=== PATIENT | female | born 1985 | race Caucasian/White ===

== ENCOUNTER 2021-09-27 16:27 | Emergency (ER) | payer OTHER ==
--- NOTE | 2021-09-27 16:44 | EDPHYS ---
Physician Documentation [facility] Name: Renea Kuo Age: 36 yrs Sex: Female : 1985 Arrival Date: 09/27/2021 Time: 16:32 Bed Waiting Private MD: ED Physician Nicki Sanches HPI: 09/27 16:44 This 36 yrs old Female presents to ER via Ambulatory with complaints of Neck kb pain radiates to arm. 16:44 The patient or guardian complains of pain, tenderness. The symptoms are located on the kb left lateral aspect of neck and left posterior aspect of neck. Onset: The symptoms/episode began/occurred 4 day(s) ago. Context: The problem was sustained at home, The neck injury/problem resulted from from unknown cause. Associated signs and symptoms: The patient has no apparent associated signs or symptoms, The patient denies any alcohol use. The patient is not apparently intoxicated. No neurological symptoms were experienced by the patient prior to arrival in the emergency department. The pain radiates to the left arm. Modifying factors: The symptoms are alleviated by nothing. the symptoms are aggravated by movement. Severity of symptoms: At their worst the symptoms were moderate, in the emergency department the symptoms are unchanged. The patient has not experienced similar symptoms in the past. The patient has not recently seen a physician. Pt reports pain to back and left side of neck that radiates down left arm. Pain worse with turning head all the way to the right and moving arm. . 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 - Social history:: Smoking status: Patient denies any tobacco usage or history of. Patient/guardian denies using alcohol. ROS: 16:41 Constitutional: Negative for fever, chills, and weight loss. kb 16:41 Neck: Positive for pain with movement, pain at rest, tenderness, of the left posterior aspect of neck and left lateral aspect of neck. 16:41 All other systems are negative. Exam: 16:42 Constitutional: This is a well developed, well nourished patient who is awake, alert, kb and in no acute distress. Head/Face: Normocephalic, atraumatic. Respiratory: Respirations even and unlabored. No increased work of breathing, no retractions or nasal flaring. Skin: Warm, dry with normal turgor. Normal color. MS/ Extremity: Pulses equal, no cyanosis. Neurovascular intact. Full, normal range of motion. Neuro: Awake and alert, GCS 15, oriented to person, place, time, and situation. Moves all extremities. Normal gait. Psych: Awake, alert, with orientation to person, place and time. Behavior, mood, and affect are within normal limits. 16:42 Neck: External neck: tenderness, that is mild, of the left posterior aspect of neck and left lateral aspect of neck. Vital Signs: 16:40 BP 121 / 91; Pulse 73; Resp 18; Temp 97.6(TE); Pulse Ox 98% on R/A; Weight 98.43 kg; ld1 Height 5 ft. 1 in. (154.94 cm); Pain 6/10; 16:40 Body Mass Index 41.00 (98.43 kg, 154.94 cm) ld1 MDM: 16:36 Patient medically screened. kb 16:41 Data reviewed: vital signs, nurses notes. Data interpreted: Pulse oximetry: on room air kb is 100 %. Interpretation: normal. Counseling: I had a detailed discussion with the patient and/or guardian regarding: the historical points, exam findings, and any diagnostic results supporting the discharge/admit diagnosis, the need for outpatient follow up, a family practitioner, to return to the emergency department if symptoms worsen or persist or if there are any questions or concerns that arise at home. Administered Medications: 16:54 Drug: predniSONE 40 mg Route: PO; ld1 16:54 Follow up: Response: No adverse reaction ld1 Disposition Summary: 09/27/21 16:43 Discharge Ordered Location: Home Condition: Stable kb Diagnosis - Radiculopathy, cervical region kb Followup: kb - With: Emergency Department - When: As needed - Reason: Worsening of condition Followup: kb - With: Private Physician - When: 2 - 3 days - Reason: Recheck today's complaints, Continuance of care, Re-evaluation by your physician Discharge Instructions: - Discharge Summary Sheet kb - Cervical Radiculopathy, [id number] kb Forms: - Medication Reconciliation Form kb - Thank You Letter kb - Antibiotic Education kb - Prescription Opioid Use kb - Work release form ld1 Prescriptions: - Prednisone 20 mg Oral Tablet - take 1 tablet by ORAL route once daily for 5 days; 5 tablet; Refills: 0, kb Product Selection Permitted - Cyclobenzaprine 10 mg Oral Tablet - take 1 tablet by ORAL route every 8 hours As needed; 21 tablet; Refills: 0, kb Product Selection Permitted Addendum: 10/01/2021 06:42 Co-signature as Attending Physician, Nicki Sanches MD PA/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 I agree with assessment and care plan and confirm the diagnosis (es) above. Signatures: Lulú Oliveira, FAMILY INTERVENTION SPECIALIST-C FAMILY INTERVENTION SPECIALIST-Ckb Nicki Sanches MD MD ma2 Sheila Brewer, RN RN ld1
--- NOTE | 2021-09-27 16:44 | ER ---
Nurse's Notes [facility] Name: Renea Kuo Age: 36 yrs Sex: Female : 1985 Arrival Date: 09/27/2021 Time: 16:32 Bed Waiting Private MD: Diagnosis: Radiculopathy, cervical region Presentation: 09/27 16:40 Chief complaint: Patient states: I am having neck pain that radiates down my right arm, ld1 this pain began Friday. Coronavirus screen: At this time, the client does not indicate any symptoms associated with coronavirus-19. Ebola Screen: No symptoms or risks identified at this time. Initial Sepsis Screen: Does the patient meet any 2 criteria? No. Patient's initial sepsis screen is negative. Does the patient have a suspected source of infection? No. Patient's initial sepsis screen is negative. Risk Assessment: Do you want to hurt yourself or someone else?. Onset of symptoms was September 27, 2021. 16:40 Method Of Arrival: Ambulatory ld1 16:40 Acuity: ZHANE 4 ld1 Triage Assessment: 16:42 General: Appears in no apparent distress. comfortable, Behavior is calm, cooperative, ld1 appropriate for age. Pain: Complains of pain in base of the skull Pain radiates to left arm Pain currently is 8 out of 10 on a pain scale. Quality of pain is described as shooting, stabbing, throbbing, Pain began suddenly, Is continuous. EENT: No signs and/or symptoms were reported regarding the EENT system. Neuro: Level of Consciousness is awake, alert, obeys commands, Oriented to person, place, time, situation, Appropriate for age. Cardiovascular: Capillary refill < 3 seconds Patient's skin is warm and dry. Respiratory: Airway is patent Respiratory effort is even, unlabored, Respiratory pattern is regular, symmetrical. GI: Abdomen is round non-distended. : No signs and/or symptoms were reported regarding the genitourinary system. Derm: No signs and/or symptoms reported regarding the dermatologic system. Musculoskeletal: Range of motion: intact in all extremities, Reports pain in scalp and left arm. 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 - Social history:: Smoking status: Patient denies any tobacco usage or history of. Patient/guardian denies using alcohol. Screenin:53 Abuse screen: Denies threats or abuse. Denies injuries from another. Nutritional ld1 screening: No deficits noted. Tuberculosis screening: No symptoms or risk factors identified. Fall Risk None identified. Vital Signs: 16:40 BP 121 / 91; Pulse 73; Resp 18; Temp 97.6(TE); Pulse Ox 98% on R/A; Weight 98.43 kg; ld1 Height 5 ft. 1 in. (154.94 cm); Pain 6/10; 16:40 Body Mass Index 41.00 (98.43 kg, 154.94 cm) ld1 ED Course: 16:32 Patient arrived in ED. mr 16:32 Lul[facility]-C [facility] kb 16:32 Nicki Sanches MD is Attending Physician. kb 16:42 Triage completed. ld1 16:42 Arm band placed on right wrist. ld1 16:53 No provider procedures requiring assistance completed. Patient did not have IV access ld1 during this emergency room visit. 16:54 Patient has correct armband on for positive identification. Pulse ox on. NIBP on. ld1 Administered Medications: 16:54 Drug: predniSONE 40 mg Route: PO; ld1 16:54 Follow up: Response: No adverse reaction ld1 Outcome: 16:43 Discharge ordered by . kb 16:53 Discharged to home ambulatory. ld1 16:53 Condition: stable 16:53 Discharge instructions given to patient, Instructed on discharge instructions, follow up and referral plans. medication usage, Demonstrated understanding of instructions, follow-up care, medications, Prescriptions given X 2. 16:54 Patient left the ED. ld1 Signatures: Lulú Oliveira FNP-C FNP-Ckb Rivera, Mary Sheila Brewer, RN RN ld1
[2021-09-27] MEDS ORDERED: predniSONE 20 MG TAB ONE (16:45)
[2021-09-27 17:02] VITALS: BP 121/91; TEMP 97.6; O2SAT 98
--- OUTSIDE RECORDS SUMMARY | 2021-09-29 21:47 | XMS REPORT | Continuity of Care Document ---
:[address] [facility] t Address [address] [place] [address] Care Team Providers Name Role Phone Pcp, Does Not Have A Primary Care Physician NEFTALY MORENO Attending Clinician Unavailable GENNARO Attending Clinician Unavailable Gennaro ORTIZ Attending Clinician Neftaly Moreno MD Attending Clinician Pob, Lab Main Attending Clinician Unavailable Only, Test Attending Clinician Unavailable Doctor Unassigned, Name Attending Clinician Unavailable NEFTALY MORENO Admitting Clinician Unavailable Neftaly Moreno MD Admitting Clinician Payers Payer Name Policy Type Policy Number Effective Date Expiration Date [employer]tilio [employer] [id number] 2019 OUT OF NETWORK 00:00:00 Problems Condition Condition Condition Status Onset Resolution Last Treating Co mments Source Name Details Category Date Date Treatment Clinician Date 40 weeks 40 weeks Disease Active Unive rs gestation gestation 9- ity of of of 00:00: [place] 00 [facility] Branch History of History of Disease Active U nivers herpes herpes 8-12 ity of genital[place] genitalis [place] [facility] [place] AMA AMA Disease Active Univers (advanced (advanced 2-10 ity of maternal maternal 00:00: [place] age) age) 00 Medical multigravi multigravi Br anch da 35+, da 35+, unspecifie unspecifie d d trimester trimester Previous Previous Disease Active Unive rs 1-13 ity of section section 00:00: [place] 00 [facility] High-risk High-risk Disease Active Uni vers 1-13 ity of in third in third 00:00: [place] trimester trimester 00 [facility] Liveborn Liveborn Disease Active 2018-11 Unive rs infant, of infant, of 1-21 it y of [place] , , 00 Me dical born in born in [place] [facility] by by delivery delivery Obesity Obesity Disease Active Overview: Univ ers (BMI (BMI 6-11 Formattin ity of 30-39.9) 30-39.9) 00:00: g of this Pal as 00 note Medical might be Branch different from the original. 07/07/19 - one hr gtt 120. Monthly ultrasoun ds for growth. Allergies, Adverse Reactions, Alerts Allergy Allergy Status Severity Reaction(s) Onset Inactive Treating Comm ents Source Name Type Date Date Clinician Gloves, Propensi Active Rash Univers Latex ty to 07-18 ity of With adverse 00:00: [place] Aloe reaction 00 [facility] GLOVES, DRUG Active Med Rash Univers LATEX - ity of WITH 00:00: [place] ALOE 00 [facility] NO KNOWN Drug Active Univers ALLERGIE Class ity of [facility] Social History Social Habit Start Date Stop Date Quantity Comments Source ASSERTION 2020-10-25 [facility] 00:00:00 [facility] Exposure to Not sure [facility] SARS-CoV-2 [facility] (event) Branch Alcohol intake 2021-08-16 2021-08-16 Current [facility] 00:00:00 00:00:00 non-drinker of [facility] alcohol [place] (finding) Tobacco use and 2019-03-30 2019-03-30 Never used Universit y of exposure 00:00:00 00:00:00 [facility] Sex [birth year] Universit y of 00:00:00 00:00:00 [facility] Smoking Status Start Date Stop Date Source Never smoker [facility] Medications Ordered Filled Start Stop Current Ordering Indication Dosage Frequency Signature Comments Components Source Medication Medication Date Date Medication? Clinician (SIG) Name Name nystatin Yes [id number] Apply to Univers 100,000 9-30 area(s) 2 ity of unit/gram 00:00: (two) [place] powder 00 times Medical daily. Branch PNV 2020-0 2020- No Take by Univers no.153/FA/o -01 23-03 mouth. ity o f m3/dha/epa/ 12:00: 00:00 [place] fish 21 :00 Medical ( Branch GUMMIES ORAL) ibuprofen Yes 600mg 600 mg, Univ ers (IBU) 9-03 Oral, Q6H ity of tablet 600 05:00: ABX, First [place] mg 00 dose on Medical Fri07/20/21 Branch at 0000, Until Discontinu ed, Routine ibuprofen Yes 600mg 600 mg, Univ ers (IBU) 903 Oral, Q6H ity of tablet 600 05:00: ABX, First [place] mg 00 dose on Medical Fri07/20/21 Branch at 0000, Until Discontinu ed, Routine acetaminoph Yes [id number] 650mg Take 2 Univers en 325 mg 9-03 tablets by ity of tablet 00:00: mouth [place] 00 every 6 Medical (six) Branch hours as needed for Pain (scale 1-3) or Pain (scale 4-6). 2020- Yes [id number] 1{tbl} Take 1 Univers vitamin 9-03 tablet by ity of w/FA tablet 00:00: mouth [place] 00 daily. Medical Branch docusate 0 Yes [id number] 240mg Take 1 U nivers calcium 240 9-03 capsule by it y of mg capsule 00:00: mouth once [place] 00 daily as Medical needed for Branch Constipati on. ferrous Yes [id number] 325mg Take 1 Un raymond sulfate 325 9-03 tablet by ity of mg (65 mg 00:00: mouth 2 [place] iron) 00 (two) Medical tablet times Branch daily. ibuprofen Yes [id number] 600mg Take 1 Univers 600 mg 9-03 tablet by ity of tablet 00:00: mouth [place] 00 every 6 Medical (six) Branch hours as needed (Pain). Take with food or milk. acetaminoph Yes [id number] 650mg Take 2 Univers en 325 mg 9-03 tablets by ity of tablet 00:00: mouth [place] 00 every 6 Medical (six) Branch hours as needed for Pain (scale 1-3) or Pain (scale 4-6). Yes [id number] 1{tbl} Take 1 Univers vitamin 9-03 tablet by ity of w/FA tablet 00:00: mouth [place] 00 daily. Medical Branch docusate Yes [id number] 240mg Take 1 U nivers calcium 240 9-03 capsule by it y of mg capsule 00:00: mouth once [place] 00 daily as Medical needed for Branch Constipati on. ferrous Yes [id number] 325mg Take 1 Un raymond sulfate 325 9-03 tablet by ity of mg (65 mg 00:00: mouth 2 [place] iron) 00 (two) Medical tablet times Branch daily. ibuprofen Yes [id number] 600mg Take 1 Univers 600 mg 9-03 tablet by ity of tablet 00:00: mouth [place] 00 every 6 Medical (six) Branch hours as needed (Pain). Take with food or milk. acetaminoph Yes [id number] 650mg Take 2 Univers en 325 mg 9-03 tablets by ity of tablet 00:00: mouth [place] 00 every 6 Medical (six) Branch hours as needed for Pain (scale 1-3) or Pain (scale 4-6). Yes [id number] 1{tbl} Take 1 Univers vitamin 9-03 tablet by ity of w/FA tablet 00:00: mouth [place] 00 daily. Medical Branch docusate Yes [id number] 240mg Take 1 U nivers calcium 240 9-03 capsule by it y of mg capsule 00:00: mouth once [place] 00 daily as Medical needed for Branch Constipati on. ferrous Yes [id number] 325mg Take 1 Un raymond sulfate 325 9-03 tablet by ity of mg (65 mg 00:00: mouth 2 [place] iron) 00 (two) Medical tablet times Branch daily. ibuprofen Yes [id number] 600mg Take 1 Univers 600 mg 9-03 tablet by ity of tablet 00:00: mouth [place] 00 every 6 Medical (six) Branch hours as needed (Pain). Take with food or milk. HYDROcodone 2020- Yes [id number] 1{tbl} Take 1 U nivers -acetaminop 07-20 tablet by it y of hen 5-325 00:00: 04:59 mouth [place] mg tablet 00 :00 every 6 Medical (six) Branch hours as needed for Pain (scale 7-10) for up to 7 days. Indication s: acute pain gabapentin 2020-0 2021- Yes [id number] 300mg Take 1 Univers 300 mg 07-20 capsule by ity of capsule 00:00: 04:59 mouth 3 [place] 00 :00 (three) Medical times Branch daily for 5 days. acetaminoph Yes 650mg 650 mg, Un raymond en 07-19 Oral, Q6H ity of (TYLENOL) 12:30: ABX, First [place] tablet 650 00 dose Medical mg (after Branch last modificati on) on Fri07/19/21 at 0730, Until Discontinu ed, Routine acetaminoph Yes 650mg 650 mg, Un raymond en 07-19 Oral, Q6H ity of (TYLENOL) 12:30: ABX, First [place] tablet 650 00 dose Medical mg (after Branch last modificati on) on Fri07/19/21 at 0730, Until Discontinu ed, Routine HYDROcodone 2020-0 Yes 1{tbl} 1 tablet, Univers -acetaminop 07-19 Oral, ity of hen (NORCO 12:00: Q6HPRN, [place] 5) 5-325 mg 00 Starting Medi joseph tablet Fri07/19/21 Branc h tablet at 0700, Until Discontinu ed, Routine, Pain (scale 7-10) HYDROcodone 2020-0 Yes 1{tbl} 1 tablet, Univers -acetaminop 07-19 Oral, ity of hen (NORCO 12:00: Q6HPRN, [place] 5) 5-325 mg 00 Starting Medi joseph tablet Fri07/19/21 Branc h tablet at 0700, Until Discontinu ed, Routine, Pain (scale 7-10) ketorolac 2020-0 202- Yes 30mg 30 mg, Unive rs (TORADOL) 07-19 Slow IV ity of injection 05:00: 04:59 Push, Q6H [place] 30 mg 00 :00 ABX, 4 Medical doses, Branch First dose on Fri07/19/21 at 0000, Last dose on Fri07/19/21 at 1800, Routine
member services representative approving Restricted medication : RUY MORENO ketorolac No 30mg 30 mg, Unive rs (TORADOL) 07-19 Slow IV ity of injection 05:00: 04:59 Push, Q6H [place] 30 mg 00 :00 ABX, 4 Medical doses, Branch First dose on Fri07/19/21 at 0000, Last dose on Fri07/19/21 at 1800, Routine
member services representative approving Restricted medication : RUY MORENO acetaminoph No 1000mg 1,000 mg, Univers en ADULT 07-18 IV ity of (OFIRMEV) 21:00: 21:37 Infusion, [place] injection 00 :00 Administer Medi joseph 1,000 mg over 15 Branch Minutes, Q6H, 1 dose, First dose on Fri07/18/21 at 1600, Routine, PACU
In dication: Perioperat mike Patient gabapentin 2020-0 Yes 300mg 300 mg, Uni vers (NEURONTIN) 07-18 Oral, TID, it y of capsule 300 19:00: First dose [place] mg 00 on Fri07/18/21 at Branch 1400, Until Discontinu ed, Routine gabapentin 2020-0 Yes 300mg 300 mg, Uni vers (NEURONTIN) 07-18 Oral, TID, it y of capsule 300 19:00: First dose [place] mg 00 on Fri07/18/21 at Branch 1400, Until Discontinu ed, Routine simethicone 0 Yes 160mg 160 mg, Un raymond (GAS RELIEF 07-18 Oral, ity of (SIMETHICON 18:00: PC+HS, [place] E)) 00 First dose Medical chewable on Fri Branch tablet 160 07/18/21 at mg 1300, Until Discontinu ed, Routine simethicone 0 Yes 160mg 160 mg, Un raymond (GAS RELIEF 07-18 Oral, ity of (SIMETHICON 18:00: PC+HS, [place] E)) 00 First dose Medical chewable on Fri Branch tablet 160 07/18/21 at mg 1300, Until Discontinu ed, Routine lactated 2020- No 1000mL at 125 [facility] [place] [facility] ers ringers IV 07-18 mL/hr, ity of infusion 16:00: 21:22 1,000 mL, Pal as 1,000 mL 00 :00 IV Medical Infusion, Branch ONCE, 1 dose, Fri07/18/21 at 1100, Routine nalbuphine Yes 5mg 5 mg, Univer s (NUBAIN) 07-18 Intravenou ity o f injection 5 15:53: s, PRN, 1 [place] mg 47 dose, Medical Starting Branch Fri07/18/21 at 1053, Until Discontinu ed, Routine, itching, PACU nalbuphine Yes 5mg 5 mg, Univer s (NUBAIN) 07-18 Intravenou ity o f injection 5 15:53: s, PRN, 1 [place] mg 47 dose, Medical Starting Branch Fri07/18/21 at 1053, Until Discontinu ed, Routine, itching, PACU naloxone 2020- Yes .4mg 0.4 mg, Unive rs (NARCAN) 07-18 Slow IV ity of injection 15:53: 15:52 Push, PRN [place] 0.4 mg 47 :47 - SEE Medical INSTRUCTIO [place] NS, Starting Fri07/18/21 at 1053, Until Fri07/20/21 at 1052, Routine, Analgesia Recovery, PACU rho(D) Yes 300ug 300 mcg, Univer s immune 07-18 Intramuscu ity of globulin 15:52: lar, ONCE, Pal as (RHOGAM) 51 For 1 Medical syringe 300 dose, Branch mcg Conditiona l, Routine rho(D) Yes 300ug 300 mcg, Univer s immune 07-18 Intramuscu ity of globulin 15:52: lar, ONCE, Pal as (RHOGAM) 51 For 1 Medical syringe 300 dose, Branch mcg Conditiona l, Routine diphenhydrA Yes 25mg 25 mg, Univ ers MINE 07-18 Oral, ity of (BENADRYL) 15:52: Q6HPRN, [place] tablet 25 43 Starting Medica l mg Fri07/18/21 Branch at 1052, Until Discontinu ed, Routine, Sleep, Itching ondansetron 2021-0 Yes 4mg 4 mg, Slow Univers (ZOFRAN 07-18 IV Push, ity of (PF)) 15:52: Q8HPRN, [place] injection 4 43 Starting Medi joseph mg Fri07/18/21 Branch at 1052, Until Discontinu ed, Routine, Nausea and Vomiting (N/V) bisacodyL 2021-0 Yes 10mg 10 mg, Univer s (DULCOLAX) 07-18 Rectal, ity of suppository 15:52: QDAILYPRN, [place] 10 mg 43 Starting Medical Fri07/18/21 Branch at 1052, Until Discontinu ed, Routine, Constipati on magnesium 2021-0 Yes 30mL 30 mL, Univer s hydroxide 07-18 Oral, ity of (MILK OF 15:52: QDAILYPRN, Pal as MAGNESIA) 43 Starting Medica l 400 mg/5 mL Fri07/18/21 Br anch suspension at 1052, 30 mL Until Discontinu ed, Routine, Constipati on diphenhydrA 1-0 Yes 25mg 25 mg, Univ ers MINE 07-18 Oral, ity of (BENADRYL) 15:52: Q6HPRN, [place] tablet 25 43 Starting Medica l mg Fri07/18/21 Branch at 1052, Until Discontinu ed, Routine, Sleep, Itching ondansetron 2021-0 Yes 4mg 4 mg, Slow Univers (ZOFRAN 07-18 IV Push, ity of (PF)) 15:52: Q8HPRN, [place] injection 4 43 Starting Medi joseph mg Fri07/18/21 Branch at 1052, Until Discontinu ed, Routine, Nausea and Vomiting (N/V) bisacodyL 2021-0 Yes 10mg 10 mg, Univer s (DULCOLAX) 07-18 Rectal, ity of suppository 15:52: QDAILYPRN, [place] 10 mg 43 Starting Medical Fri07/18/21 Branch at 1052, Until Discontinu ed, Routine, Constipati on magnesium 2021-0 Yes 30mL 30 mL, Univer s hydroxide 07-18 Oral, ity of (MILK OF 15:52: QDAILYPRN, [place] as MAGNESIA) 43 Starting Medica l 400 mg/5 mL Fri07/18/21 Br anch suspension at 1052, 30 mL Until Discontinu ed, Routine, Constipati on mupirocin Yes Intra-op Univ ers (BACTROBAN 07-18 ity of OINT) 2 % 15:38: [place] skin 00 Medical ointment Branch mupirocin Yes Intra-op Univ ers (BACTROBAN 07-18 ity of OINT) 2 % 15:38: [place] skin 00 Medical ointment Branch sodium Yes PRN, Univers chloride 07-18 Starting ity of 0.9 % 15:00: Fri07/18/21 [place] irrigation 00 at 1000, Medic al solution Until Branch Discontinu ed, Intra-op sodium Yes PRN, Univers chloride 07-18 Starting ity of 0.9 % 15:00: Fri07/18/21 [place] irrigation 00 at 1000, Medic al solution Until Branch Discontinu ed, Intra-op PNV Yes Take by Univers no.153/FA/o 07-18 mouth. ity of m3/dha/epa/ 14:24: [place] fish 56 Medical ( Branch GUMMIES ORAL) sodium 2020- No 30mL 30 mL, Univers citrate-cit 07-18 Oral, ity of sarah acid 12:11: 13:50 PRE-PROCED [place] (BICITRA) 23 :00 URE ONCE, Medic al 500-334 1 dose, Branch mg/5 mL Starting solution 30 Fri07/18/21 mL at 0711, Until Fri07/18/21 at 0850, Routine, Surgery/Pr ocedure lactated 2020- No 500mL at 999 Unive rs ringers IV 07-18 mL/hr, 500 it y of infusion 12:11: 15:52 mL, IV [place] 500 mL 23 :52 Infusion, Medical PRN - SEE Branch INSTRUCTIO NS, Starting Fri07/18/21 at 0711, Until Fri07/18/21 at 1052, Routine acyclovir 2020- No [id number] 400mg Take 1 Univers 400 mg 06-28 tablet by ity of tablet 00:00: 04:59 mouth 3 [place] 00 :00 (three) Medical times Branch daily for 21 days. acyclovir 2020-2020- No [id number] 400mg Take 1 Univers 400 mg 8-10 25-03 tablet by ity of tablet 00:00: 04:59 mouth 3 [place] 00 :00 (three) Medical times Branch daily for 21 days. acyclovir 2020-2020- No [id number] 400mg Take 1 Univers 400 mg 8-10 25-03 tablet by ity of tablet 00:00: 04:59 mouth 3 [place] 00 :00 (three) Medical times Branch daily for 21 days. acyclovir 2020-2020- No [id number] 400mg Take 1 Univers 400 mg 8-10 25- tablet by ity of tablet 00:00: 04:59 mouth 3 [place] 00 :00 (three) Medical times Branch daily for 21 days. acyclovir 2020-2020- No [id number] 400mg Take 1 Univers 400 mg 8-10 25- tablet by ity of tablet 00:00: 04:59 mouth 3 [place] 00 :00 (three) Medical times Branch daily for 21 days. acyclovir 2020- No [id number] 400mg Take 1 Univers 400 mg 8-10 25- tablet by ity of tablet 00:00: 04:59 mouth 3 [place] 00 :00 (three) Medical times Branch daily for 21 days. acyclovir 2020- No [id number] 400mg Take 1 Univers 400 mg 8-10 25- tablet by ity of tablet 00:00: 00:00 mouth 3 [place] 00 :00 (three) Medical times Branch daily for 21 days. ferrous Yes [id number] 325mg Take 1 Un raymond sulfate 6-28 tablet by ity of (IRON, 00:00: mouth 2 [place] FERROUS 00 (two) Medical SULFATE,) times Branch 325 mg (65 daily. mg iron) tablet ferrous Yes [id number] 325mg Take 1 Un raymond sulfate 6-28 tablet by ity of (IRON, 00:00: mouth 2 [place] FERROUS 00 (two) Medical SULFATE,) times Branch 325 mg (65 daily. mg iron) tablet ferrous Yes [id number] 325mg Take 1 Un raymond sulfate 6-28 tablet by ity of (IRON, 00:00: mouth 2 [place] FERROUS 00 (two) Medical SULFATE,) times Branch 325 mg (65 daily. mg iron) tablet ferrous Yes [id number] 325mg Take 1 Un raymond sulfate 6-28 tablet by ity of (IRON, 00:00: mouth 2 [place] FERROUS 00 (two) Medical SULFATE,) times Branch 325 mg (65 daily. mg iron) tablet ferrous Yes [id number] 325mg Take 1 Un raymond sulfate 6-28 tablet by ity of (IRON, 00:00: mouth 2 [place] FERROUS 00 (two) Medical SULFATE,) times Branch 325 mg (65 daily. mg iron) tablet ferrous Yes [id number] 325mg Take 1 Un raymond sulfate 6-28 tablet by ity of (IRON, 00:00: mouth 2 [place] FERROUS 00 (two) Medical SULFATE,) times Branch 325 mg (65 daily. mg iron) tablet ferrous 2020- No [id number] 325mg Take 1 U nivers sulfate 6-28 07-20 tablet by ity of (IRON, 00:00: 00:00 mouth 2 [place] FERROUS 00 :00 (two) Medical SULFATE,) times Branch 325 mg (65 daily. mg iron) tablet PNV Yes Take by Univers no.153/FA/o 4-12 mouth. ity of m3/dha/epa/ 18:17: [place] fish 19 Medical ( Branch GUMMIES ORAL) PNV 0 Yes Take by Univers no.153/FA/o 4-12 mouth. ity of m3/dha/epa/ 18:17: [place] fish 19 Medical ( Branch GUMMIES ORAL) PNV 0 Yes Take by Univers no.153/FA/o 4-12 mouth. ity of m3/dha/epa/ 18:17: [place] fish 19 Medical ( Branch GUMMIES ORAL) PNV 0 Yes Take by Univers no.153/FA/o 4-12 mouth. ity of m3/dha/epa/ 18:17: [place] fish 19 Medical ( Branch GUMMIES ORAL) PNV 2020- Yes Take by Univers no.153/FA/o 4-12 mouth. ity of m3/dha/epa/ 18:17: [place] fish 19 Medical ( Branch GUMMTES ORAL) Immunizations Ordered Filled Immunization Date Status Comments [facility] e Immunization Name Name TDAP 2021-04-26 Completed University of 00:00:00 [facility] Branch TDAP 2021-04-26 Completed University of 00:00:00 [facility] Branch TDAP 2021-04-26 Completed University of 00:00:00 [facility] TDAP 2021-04-26 Completed University of 00:00:00 [facility] Branch TDAP 2021-04-26 Completed University of 00:00:00 [facility] TDAP 2021-04-26 Completed University of 00:00:00 [facility] TDAP 2021-04-26 Completed University of 00:00:00 [facility] TDAP 2021-04-26 Completed University of 00:00:00 [facility] TDAP 2021-04-26 Completed University of 00:00:00 [facility] SARS-COV-2 COVID-19 2021-03-09 Completed Unive rsity of PFIZER VACCINE 00:00:00 [facility] SARS-COV-2 COVID-19 2021-03-09 Completed Unive rsity of PFIZER VACCINE 00:00:00 [facility] SARS-COV-2 COVID-19 2021-03-09 Completed Unive rsity of PFIZER VACCINE 00:00:00 [facility] SARS-COV-2 COVID-19 2021-03-09 Completed Unive rsity of PFIZER VACCINE 00:00:00 [facility] Influenza Virus 2020-11-29 Completed Universit y of Vaccine Quad .5 mL 00:00:00 [facility] IM 6+ MO Branch Influenza Virus 2020-11-29 Completed Universit y of Vaccine [place] .5 mL 00:00:00 [facility] IM 6+ MO Branch Influenza Virus 2020-11-29 Completed Universit y of Vaccine Quad .5 mL 00:00:00 [place] Medical IM 6+ MO Branch Influenza Virus 2020-11-29 Completed Universit y of Vaccine Quad .5 mL 00:00:00 [place] Medical IM 6+ MO Branch Influenza Virus 2020-11-29 Completed Universit y of Vaccine [place] .5 mL 00:00:00 [facility] IM 6+ MO Branch Influenza Virus 2020-11-29 Completed Universit y of Vaccine [place] .5 mL 00:00:00 [place] Medical IM 6+ MO Branch Influenza Virus 2020-11-29 Completed Universit y of Vaccine [place] .5 mL 00:00:00 [place] Medical IM 6+ MO Branch Influenza Virus 2020-11-29 Completed Universit y of Vaccine [place] .5 mL 00:00:00 [place] Medical IM 6+ MO Branch Influenza Virus 2020-11-29 Completed Universit y of Vaccine [place] .5 mL 00:00:00 [place] Medical IM 6+ MO Branch Influenza Virus 2019-08-25 Completed Universit y of Vaccine [place] .5 mL 00:00:00 [place] Medical IM 6+ MO Branch Influenza Virus 2019-08-25 Completed Universit y of Vaccine [place] .5 mL 00:00:00 [place] Medical IM 6+ MO Branch Influenza Virus 2019-08-25 Completed Universit y of Vaccine Quad .5 mL 00:00:00 [place] Medical IM 6+ MO Branch Influenza Virus 2019-08-25 Completed Universit y of Vaccine Quad .5 mL 00:00:00 [place] Medical IM 6+ MO Branch Influenza Virus 2019-08-25 Completed Universit y of Vaccine Quad .5 mL 00:00:00 [place] Medical IM 6+ MO Branch Influenza Virus 2019-08-25 Completed Universit y of Vaccine [place] .5 mL 00:00:00 [place] Medical IM 6+ MO Branch Influenza Virus 2019-08-25 Completed Universit y of Vaccine [place] .5 mL 00:00:00 [place] Medical IM 6+ MO Branch Influenza Virus 2019-08-25 Completed Universit y of Vaccine Quad .5 mL 00:00:00 [place] Medical IM 6+ MO Branch Influenza Virus 2019-08-25 Completed Universit y of Vaccine [place] .5 mL 00:00:00 [facility] 6+ MO Branch TDAP (ADACEL) 2019-07-12 Completed University of VACCINE 00:00:00 [place] [facility] Branch TDAP (ADACEL) 2019-07-12 Completed University of VACCINE 00:00:00 [place] [facility] Branch TDAP (ADACEL) 2019-07-12 Completed University of VACCINE 00:00:00 [place] [facility] TDAP (ADACEL) 2019-07-12 Completed University of VACCINE 00:00:00 [place] [facility] TDAP (ADACEL) 2019-07-12 Completed University of VACCINE 00:00:00 [facility] TDAP (ADACEL) 2019-07-12 Completed University of VACCINE 00:00:00 [facility] TDAP (ADACEL) 2019-07-12 Completed University of VACCINE 00:00:00 [place] [facility] TDAP (ADACEL) 2019-07-12 Completed University of VACCINE 00:00:00 [facility] Branch TDAP (ADACEL) 2019-07-12 Completed University of VACCINE 00:00:00 [facility] Vital Signs Vital Name Observation Time Observation Value Comments Source Systolic blood 2021-08-16 19:41:00 113 mm[Hg] Univer sity of pressure [place] [facility] Diastolic blood 2021-08-16 19:41:00 78 mm[Hg] Unive rsity of pressure [place] [facility] Heart rate 2021-08-16 19:41:00 74 /min Universi ty of [place] [facility] Body temperature 2021-08-16 19:41:00 36.5 Skylar Univ ersity of [place] [facility] Respiratory rate 2021-08-16 19:41:00 18 /min Univ ersity of [place] [facility] Body height 2021-08-16 19:41:00 154.9 cm Universi ty of [place] [facility] Body weight 2021-08-16 19:41:00 93.895 kg Universi ty of [place] [facility] BMI 2021-08-16 19:41:00 39.11 kg/m2 Universi ty of [place] [facility] Systolic blood 2021-07-30 18:30:00 116 mm[Hg] Univer sity of pressure [place] [facility] Diastolic blood 2021-07-30 18:30:00 76 mm[Hg] Unive rsity of pressure [place] [facility] Heart rate 2021-07-30 18:30:00 70 /min Universi ty of [place] [facility] Body temperature 2021-07-30 18:30:00 36.5 Skylar Univ ersity of [place] [facility] Respiratory rate 2021-07-30 18:30:00 16 /min Univ ersity of [place] [facility] Body height 2021-07-30 18:30:00 154.9 cm Universi ty of [place] [facility] Body weight 2021-07-30 18:30:00 95.528 kg Universi ty of [place] [facility] BMI 2021-07-30 18:30:00 39.79 kg/m2 Universi ty of [place] [facility] Systolic blood 2021-07-20 17:00:00 130 mm[Hg] Univer sity of pressure [place] [facility] Diastolic blood 2021-07-20 17:00:00 79 mm[Hg] Unive rsity of pressure [place] [facility] Heart rate 2021-07-20 17:00:00 87 /min Universi ty of [place] [facility] Body temperature 2021-07-20 17:00:00 36.72 Skylar Univ ersity of [place] [facility] Respiratory rate 2021-07-20 17:00:00 18 /min Univ ersity of [place] [facility] Oxygen saturation in 2021-07-20 08:15:00 98 /min University of Arterial blood by [facility] Pulse oximetry Branch Body height 2021-07-18 12:23:00 154.9 cm Universi ty of [place] [facility] Body weight 2021-07-18 12:23:00 98.431 kg Universi ty of [place] [facility] BMI 2021-07-18 12:23:00 41.00 kg/m2 Universi ty of [place] [facility] Systolic blood 2021-07-18 12:30:00 119 mm[Hg] Univer sity of pressure [place] [facility] Diastolic blood 2021-07-18 12:30:00 80 mm[Hg] Unive rsity of pressure [place] [facility] Heart rate 2021-07-18 12:30:00 91 /min Universi ty of [place] [facility] Oxygen saturation in 2021-07-18 12:30:00 98 /min University of Arterial blood by [facility] Pulse oximetry Branch Body temperature 2021-07-18 12:23:00 36.67 Skylar Univ ersity of [place] [facility] Respiratory rate 2021-07-18 12:23:00 14 /min Univ ersity of [place] [facility] Body height 2021-07-18 12:23:00 154.9 cm [facility] Body weight 2021-07-18 12:23:00 98.431 kg [facility] BMI 2021-07-18 12:23:00 41.00 kg/m2 [facility] Systolic blood 2021-07-12 19:05:00 113 mm[Hg] Un[facility] of pressure [facility] Diastolic blood 2021-07-12 19:05:00 75 mm[Hg] Unive rsity of pressure [facility] Heart rate 2021-07-12 19:05:00 84 /min [facility] Body temperature 2021-07-12 19:05:00 36.5 [facility] Respiratory rate 2021-07-12 19:05:00 18 /min [facility] Body height 2021-07-12 19:05:00 156.2 cm [facility] Body weight 2021-07-12 19:05:00 97.977 kg [facility] BMI 2021-07-12 19:05:00 40.15 kg/m2 [facility] Procedures Procedure Date / Time Performed Performing Clinician Marcus e CBC WITH DIFF 2021-07-19 08:17:00 Tiffanie [facility] CBC WITH DIFF 2021-07-19 08:17:00 Tiffanie [facility] VENOUS CORD GAS 2021-07-18 15:02:00 Moreno [facility] VENOUS CORD GAS 2021-07-18 15:02:00 Tiffanie [facility] SECTION 2021-07-18 13:55:00 More[place] [facility] SECTION 2021-07-18 13:55:00 Moreno [facility] RHO (D) IMMUNE 2021-07-17 18:58:00 [facility] RHO (D) IMMUNE 2021-07-17 18:58:00 [facility] ASSIGNMENT OF BENEFITS 2021-07-12 20:07:31 Doctor Unassigned, No [facility] POCT URINALYSIS W/O 2021-07-12 00:00:00 Luz Elena Mata [facility] Encounters Start End Encounter Admission Attending Care Care Encounter Source Date/Time Date/Time Type Type Clinicians Facility Department ID 2021-09-17 Outpatient P RUY MORENO [facility] [place] [id number] Univers 18:23:35 [facility] 2022-02-14 2022-02-14 Outpatient SHAHZAD MATA AKTAMI [id number] Univers 13:30:00 13:30:00 LUZ ELENA [id number] [facility] 2021-08-162021-08-16 Outpatient R GENNARO [facility] [id number] Univers 14:30:00 14:30:00 LUZ ELENA [id number] ity [facility] 2021-08-16 2021-08-16 Outpatient R GENNARO [facility] [id number] Univers 14:30:00 14:30:00 [facility] 2021-08-16 Routine Gennaro [facility] [id number] Univers 14:11:50 14:26:50 Luz Elena [place] [id number] [place] [id number] [address] 2021-07-30 2021-07-30 Routine Moreno [facility] [id number] Univers 12:54:13 14:09:10 Cam [place] [id number] [place] [id number] [address] 2021-07-30 2021-07-30 Outpatient R TIFFANIE [facility] [id number] Univers 13:00:00 13:00:00 [id number] ity of [facility] 2021-07-30 2021-07-30 Outpatient R JOELLE MORENOEN [facility] [id number] Univers 13:00:00 13:00:00 ity of [facility] 2021-07-18 2021-07-20 [facility] [id number] Univers 06:50:00 15:38:00 Encounter Cam [place] [id number] [place] [id number] [facility] [address] 2021-07-18 2021-07-18 Surgery Tiffanie [facility] [id number] Univers 09:00:00 10:16:00 Cam [place] [id number] [place] [id number] [facility] 013 Branch 2021-07-17 2021-07-17 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 [id number] Univers 13:33:56 13:48:56 Only Tiffanie Ruy [place] 350.1.13.10 [place] [id number] [facility] [address] 2021-07-17 2021-07-17 Outpatient R [facility] [id number] Univers 13:30:00 13:30:00 [id number] ity [facility] 2021-07-17 2021-07-17 Outpatient R [facility] [id number] Univers 13:30:00 13:30:00 ity [facility] 2021-07-12 2021-07-12 [facility] [id number] Univers 13:34:20 13:49:20 Luz Elena [place] 350.1.13.10 [place] [phone] Wy dical nal 134 [facility] 2021-07-12 2021-07-12 Outpatient R GENNARO [facility] [id number] Univers 13:30:00 13:30:00 LUZ ELENA [id number] ity [facility] 2021-07-12 2021-07-12 Outpatient R GENNARO [facility] [id number] Univers 13:30:00 13:30:00 LUZ ELENA itashok [facility] 2021-07-12 2021-07-12 Telephone Ruy Moreno [facility] 1.2.840.114 [id number] Univers 00:00:00 00:00:00 Cam [place] 350.1.13.10 i [place] [id number] Wy dical [address] 2021-07-12 2021-07-12 Orders Doctor JUJU 1.2.840.114 [id number] Univers 00:00:00 00:00:00 Only Unassigned, SHAZIA 350.1.13.10 ity of [facility] 4.2.7.2.686 [place] [id number] [address] 2021-07-05 2021-07-05 Outpatient R RUY MORENO [facility] [id number] Univers 13:45:00 13:45:00 [id number] ity [facility] 2021-07-05 2021-07-05 Outpatient Charles MORENO RUY [facility] [id number] Univers 13:45:00 13:45:00 ity [facility] 2021-06-29 2021-06-29 Outpatient R [facility] [id number] Univers 13:30:00 13:30:00 [id number] ity [facility] 2021-06-29 2021-06-29 Outpatient R [facility] [id number] Univers 13:30:00 13:30:00 ity [facility] 2021-06-28 2021-06-28 Outpatient RUY JOSEPH [facility] [id number] Univers 13:15:00 13:15:00 [id number] ity [facility] 2021-06-28 2021-06-28 Outpatient R TIFFANIE RUY [facility] [id number] Univers 13:15:00 13:15:00 ity [facility] 2021-06-14 2021-06-14 Outpatient Charles MATA [facility] [id number] Univers 11:00:00 11:00:00 LUZ ELENA [id number] ity [facility] 2021-06-14 2021-06-14 Outpatient Charles MATA [facility] [id number] Univers 11:00:00 11:00:00 LUZ ELENA ity [facility] 2021-06-04 2021-06-04 Outpatient GENNARO [facility] [id number] Univers 13:00:00 13:00:00 LUZ ELENA [id number] ity [facility] 2021-06-04 2021-06-04 Outpatient R GENNARO [facility] [id number] Univers 13:00:00 13:00:00 LUZ ELENA ity [facility] 2021-05-30 2021-05-30 Outpatient RUY MORENO [facility] [id number] Univers 10:15:00 10:15:00 [id number] ity [facility] 2021-05-30 2021-05-30 Outpatient R TIFFANIE RUY [facility] [id number] Univers 10:15:00 10:15:00 ity [facility] 2021-05-14 2021-05-14 Outpatient R LANAJACKY [facility] [id number] Univers 15:00:00 15:00:00 LUZ ELENA [id number] [facility] 2021-05-14 2021-05-14 Outpatient R NISHIPRISCILAJACKY [facility] [id number] Univers 15:00:00 15:00:00 LUZ ELENA [facility] 2021-04-26 2021-04-26 Outpatient R RUY MORENO [facility] [id number] Univers 13:00:00 13:00:00 [id number] ity [facility] 2021-04-26 2021-04-26 Outpatient R TIFFANIE RUY [facility] [id number] Univers 13:00:00 13:00:00 ity [facility] 2021-03-27 2021-03-27 Outpatient R RUY MORENO [facility] [id number] Univers 15:45:00 15:45:00 [id number] ity [facility] 2021-03-27 2021-03-27 Outpatient R MORENORUY [facility] [id number] Univers 15:45:00 15:45:00 ity [facility] 2021-03-26 2021-03-26 Outpatient R RUY MORENO [facility] [id number] Univers 13:30:00 13:30:00 [id number] ity [facility] 2021-02-28 2021-02-28 Outpatient R [facility] [id number] Univers 13:30:00 13:30:00 [id number] ity [facility] 2021-02-28 2021-02-28 Outpatient P [facility] [id number] Univers 13:30:00 13:30:00 ity [facility] 2021-02-26 2021-02-26 Outpatient R [facility] [id number] Univers 14:00:00 14:00:00 ity [facility] 2021-02-26 2021-02-26 Outpatient R RUY MORENO [facility] [id number] Univers 13:15:00 13:15:00 [id number] ity [facility] 2021-01-25 2021-01-25 Outpatient R NISHIPRISCILAJACKY [facility] [id number] Univers 11:30:00 11:30:00 LUZ ELENA [id number] ity [facility] 2021-01-25 2021-01-25 Outpatient R GENNARO [facility] [id number] Univers 11:30:00 11:30:00 [facility] 2020-12-27 2020-12-27 Outpatient R RUY MORENO [facility] [id number] Univers 11:45:00 11:45:00 ity [facility] 2020-12-27 2020-12-27 Outpatient R RUY MORENO [facility] [id number] Univers 10:45:00 10:45:00 [id number] ity [facility] 2020-11-29 2020-11-29 Outpatient R RUY MORENO [facility] [id number] Univers 13:00:00 13:00:00 [id number] ity [facility] 2020-11-29 2020-11-29 Outpatient R RUY MORENO [facility] [id number] Univers 13:00:00 13:00:00 ity [facility] 2020-10-24 2020-10-24 Outpatient R [facility] [id number] Univers 13:45:00 13:45:00 [facility] 2020-10-24 2020-10-24 Outpatient R [facility] [id number] Univers 13:45:00 13:45:00 [facility] 2020-10-18 2020-10-18 Outpatient R RUY MORENO [facility] [id number] Univers 14:30:00 14:30:00 [facility] 2020-10-18 2020-10-18 Outpatient R RUY MORENO [facility] [id number] Univers 14:30:00 14:30:00 [facility] 2020-06-02 2020-06-02 Outpatient R GNENARO [facility] [id number] Univers 13:00:00 13:00:00 LUZ ELENA [id number] [facility] 2020-06-02 2020-06-02 Outpatient R GENNARO [facility] [id number] Univers 13:00:00 13:00:00 LUZ ELENA [facility] 2020-03-02 2020-03-02 Outpatient R [facility] [id number] Univers 10:40:00 10:40:00 [id number] [facility] 2020-03-02 2020-03-02 Outpatient R [facility] [id number] Univers 10:40:00 10:40:00 [facility] Results Test Description Test Time Test Comments Results Result Comments Source CBC with Differential 2021-07-19 09:51:09 Test Item Value Reference Range Interpretation Comme nts WBC (test code = 6690-2) See_Comment [A utomated message] The system which ge nerated this result transmit dafne reference range: 4.30 - 1 1.10 10*3/?L. The reference r avery was not used to interpr et this result as normal/abnor mal. RBC (test code = 789-8) See_Comment L [Au tomated message] The system which ge nerated this result transmit dafne reference range: 3.93 - 5 .25 10*6/?L. The reference r avery was not used to interpr et this result as normal/abnor mal. HGB (test code = 718-7) 10.7 g/dL 11.6-15.0 L HCT (test code = 4544-3) 32.9 % 35.7-45.2 L MCV (test code = 787-2) 90.9 fL 80.6-95.5 MCH (test code = 785-6) 29.6 pg 25.9-32.8 MCHC (test code = 786-4) 32.5 g/dL 31.6-35.1 RDW-SD (test code = 58561-9) 47.0 fL 39.0-49.9 RDW-CV (test code = 788-0) 14.3 % 12.0-15.5 PLT (test code = 777-3) See_Comment [Au tomated message] The system which ge nerated this result transmit dafne reference range: 166 - 35 8 10*3/?L. The reference range was not used to interpret th is result as normal/abnormal . MPV (test code = 35832-5) 10.4 fL 9.5-12.9 NRBC/100 WBC (test code = See_Comment [ Automated message] The 7845048184) system which ge nerated this result transmit dafne reference range: 0.0 - 10 .0 /100 WBCs. The reference r avery was not used to interpr et this result as normal/abnor mal. NRBC x10^3 (test code = <0.01 See_Comment [Au tomated message] The 6634362349) system which ge nerated this result transmit dafne reference range: 10*3/?L. The reference range was not u sed to interpret this result as normal/abnormal . GRAN MAT (NEUT) % (test code 76.0 % = 770-8) IMM GRAN % (test code = 0.70 % 2680764879) LYMPH % (test code = 736-9) 16.0 % MONO % (test code = 5905-5) 6.3 % EOS % (test code = 713-8) 0.7 % BASO % (test code = 706-2) 0.3 % GRAN MAT x10^3(ANC) (test 5.77 10*3/uL 1.88-7.09 code = 6416598720) IMM GRAN x10^3 (test code = 0.05 10*3/uL 0.00-0.06 5970607038) LYMPH x10^3 (test code = 1.21 10*3/uL 1.32-3.29 L 731-0) MONO x10^3 (test code = 0.48 10*3/uL 0.33-0.92 742-7) EOS x10^3 (test code = 0.05 10*3/uL 0.03-0.39 711-2) BASO x10^3 (test code = <0.03 0.01-0.07 704-7) Lab Interpretation (test Abnormal code = 12571-3) [facility] with [id number] 09:51:09 Test Item Value Reference Range Interpretation Comments WBC (test code = See_Comment [Automated 6690-2) message] The sy stem which generated this result transmitted reference range : 4.30 - 11.10 10*3/?L. The reference range was not used to interpret this result as normal/abnormal . RBC (test code = See_Comment L [Automated 789-8) message] The sy stem which generated this result transmitted reference range : 3.93 - 5.25 10*6/?L. The reference range was not used to interpret this result as normal/abnormal . HGB (test code = 10.7 g/dL 11.6-15.0 L 718-7) HCT (test code = 32.9 % 35.7-45.2 L 4544-3) MCV (test code = 90.9 fL 80.6-95.5 787-2) MCH (test code = 29.6 pg 25.9-32.8 785-6) MCHC (test code = 32.5 g/dL 31.6-35.1 786-4) RDW-SD (test code = 47.0 fL 39.0-49.9 86014-0) RDW-CV (test code = 14.3 % 12.0-15.5 788-0) PLT (test code = See_Comment [Automated 777-3) message] The sy stem which generated this result transmitted reference range : 166 - 358 10*3/ ?L. The reference r avery was not used to interpret this result as normal/abnormal . MPV (test code = 10.4 fL 9.5-12.9 65384-7) NRBC/100 WBC (test See_Comment [Automat ed code = 0367157313) message] The system which generated this result transmitted reference range : 0.0 - 10.0 /100 WBCs. The refer ence range was not u sed to interpret th is result as normal/abnormal . NRBC x10^3 (test code <0.01 See_Comment [Auto mated = 7992986476) message] The s ystem which generated this result transmitted reference range : 10*3/?L. The reference range was not used to interpret this result as normal/abnormal . GRAN MAT (NEUT) % 76.0 % (test code = 770-8) IMM GRAN % (test code 0.70 % = 9969814057) LYMPH % (test code = 16.0 % 736-9) MONO % (test code = 6.3 % 5905-5) EOS % (test code = 0.7 % 713-8) BASO % (test code = 0.3 % 706-2) GRAN MAT x10^3(ANC) 5.77 10*3/uL 1.88-7.09 (test code = 8604412375) IMM GRAN x10^3 (test 0.05 10*3/uL 0.00-0.06 code = 3959261119) LYMPH x10^3 (test code 1.21 10*3/uL 1.32-3.29 L = 731-0) MONO x10^3 (test code 0.48 10*3/uL 0.33-0.92 = 742-7) EOS x10^3 (test code = 0.05 10*3/uL 0.03-0.39 711-2) BASO x10^3 (test code <0.03 0.01-0.07 = 704-7) Lab Interpretation Abnormal (test code = 39507-6) [facility] [id number] 18:46:03 Test Item Value Reference Range Interpretation Comments RHIG CANDIDATE? No- see comment Patient i s not a (test code = candidate for R hIg- 5055) Patient is Rh Positive.Perfor med at [facility] Laboratory Services - [facility] Blood [address] [place] [phone] Free: [phone] A No. [id number] [facility] I[facility] [id number] 18:46:03 Test Item Value Reference Range Interpretation Comments RHIG CANDIDATE? No- see comment Patient i s not a (test code = candidate for R hIg- 5055) Patient is Rh Positive.Perfor med at [facility] Laboratory Services - [facility] Blood [address] [place] [phone] Free: [phone] A No. [id number] [facility] [id number] 15:22:44 Test Item Value Reference Range Interpretation Comments BASE EXCESS, CORD mEq/L (test code = 1785445170) AC PH, CORD (BEAKER) 7.18-7.38 (test code = 0111782691) PC02, CORD (test code See_Comment [Auto mated message] The = 8579469595) system which g enerated this result transmit dafne reference range : 32 - 66 mmHg. The refer ence range was not used to interpret this result as normal/abnormal . PO2, CORD (test code See_Comment [Autom ated message] The = 9947855399) system which g enerated this result transmit dafne reference range : 10 - 30 mmHg. The refer ence range was not used to interpret this result as normal/abnormal . BICARBONATE, CORD See_Comment [Automate d message] The (test code = system which ge nerated this 9675655388) result transmit dafne reference range : 17 - 27 mEq/L. The refe rence range was not used to interpret this result as normal/abnormal . [facility] [id number] 15:22:44 Test Item Value Reference Range Interpretation Comments BASE EXCESS, CORD mEq/L (test code = 5677169176) AC PH, CORD (BEAKER) 7.18-7.38 (test code = 2109141746) PC02, CORD (test code See_Comment [Auto mated message] The = 9674052937) system which g enerated this result transmit dafne reference range : 32 - 66 mmHg. The refer ence range was not used to interpret this result as normal/abnormal . PO2, CORD (test code See_Comment [Autom ated message] The = 2236192598) system which g enerated this result transmit dafne reference range : 10 - 30 mmHg. The refer ence range was not used to interpret this result as normal/abnormal . BICARBONATE, CORD See_Comment [Automate d message] The (test code = system which ge nerated this 9612440150) result transmit dafne reference range : 17 - 27 mEq/L. The refe rence range was not used to interpret this result as normal/abnormal . [facility] Cord [id number] 15:13:27 Test Item Value Reference Range Interpretation Comments VENOUS BASE EXCESS, CORD mEq/L (test code = 6537478170) VENOUS PH, CORD (test 7.25-7.45 L code = 1897529034) VENOUS PC02, CORD (test See_Comment H [Au tomated message] code = 9967659052) The syste m which generated this result transmitted ref erence range: 27 - 49 mmHg. The reference r avery was not used to interpret this result as normal/abnor mal. VENOUS PO2, CORD (test See_Comment [Aut omated message] code = 7469934071) The syste m which generated this result transmitted ref erence range: 17 - 41 mmHg. The reference r avery was not used to interpret this result as normal/abnor mal. VENOUS BICARBONATE, CORD See_Comment [A utomated message] (test code = 9896635335) The system which generated this result transmitted ref erence range: 12 - 29 mEq/L. The reference r avery was not used to interpret this result as normal/abnor mal. Lab Interpretation (test Abnormal code = 05400-4) [facility] Cord [id number] 15:13:27 Test Item Value Reference Range Interpretation Comments VENOUS BASE EXCESS, CORD mEq/L (test code = 3320769189) VENOUS PH, CORD (test 7.25-7.45 L code = 9104470429) VENOUS PC02, CORD (test See_Comment H [Au tomated message] code = 0659025133) The syste m which generated this result transmitted ref erence range: 27 - 49 mmHg. The reference r avery was not used to interpret this result as normal/abnor mal. VENOUS PO2, CORD (test See_Comment [Aut omated message] code = 8834782085) The syste m which generated this result transmitted ref erence range: 17 - 41 mmHg. The reference r avery was not used to interpret this result as normal/abnor mal. VENOUS BICARBONATE, CORD See_Comment [A utomated message] (test code = 8888233489) The system which generated this result transmitted ref erence range: 12 - 29 mEq/L. The reference r avery was not used to interpret this result as normal/abnor mal. Lab Interpretation (test Abnormal code = 30616-9) [facility]/O SPECIFIC [id number] 19:06:00 Test Item Value Reference Range Interpretation Comments POCT PH U (test code = 3254) N/A 5-8 POCT U LEUK EST (test code = N/A Negative - Negative 3263) POCT U NIT (test code = 3262) N/A Negative - Negative POCT U PROT (test code = 3259) Negative Negative - Negative POCT U GLU (test code = 3256) Negative Negative - Negative POCT U KETONE (test code = 3258) N/A Negative - Negative POCT U BLD (test code = 3257) N/A Negative - Negative [facility]
== END 2021-09-27 16:54 | disposition home or self-care (01) ==
LOC: ER 16:27
DX: M54.12 Radiculopathy, cervical region (principal)
CPT/HCPCS: 99283; J7512